=== PATIENT | female | born 1950 | race Caucasian/White ===

== ENCOUNTER → 2017-06-16 | Outpatient (REF) | payer MEDICARE ==
[~2017-06-16] MED LIST: CALC1TAB32 PO; CALC500T42 PO; FISH OIL 1,2001 CAP PO; IBAN150T6 PO; IBU600 PO; IBUP200C74 PO; LEVO25TA61 PO; MULT1CAP41 PO; NAPR-731 PO; OLME1TAB54 PO; OLME20TA PO
== END ==
LOC: ZZSENDIN 09:35
PROVIDERS: ATTEND Physician Assistant
DX: R31.9 Hematuria, unspecified (principal)
CPT/HCPCS: 81001

== ENCOUNTER 2017-06-24 00:04 | Day surgery (SDC) | payer MEDICARE ==
--- NOTE | 2017-06-23 18:14 | HISTORY AND PHYSICAL ---
DATE OF ADMISSION: June 24, 2017 CHIEF COMPLAINT Microscopic hematuria. HISTORY OF PRESENT ILLNESS Patient is a 66-year-old white female who was referred to the Urology Clinic for evaluation of microscopic hematuria by Nicki Choudhary. Urinalysis in the office revealed 8 red blood cells per high power field without evidence of infection. She had had a prior urinalysis which showed 4 red blood cells per high power field. A CT scan performed with IV contrast was performed in December of this past year. There were no delayed images performed, however, there were no obvious kidney stones, renal masses or other anomalies. She does have a remote smoking history. Options were given to the patient to have a CT urogram to evaluate her upper tracts and have an office cystoscopy versus anesthetic cystoscopy with bilateral retrograde pyelograms. She has elected to undergo the latter. PAST MEDICAL HISTORY * Hypertension. * Hypothyroidism. * Hypercholesterolemia. * Osteoporosis. * Hepatitis. PAST SURGICAL HISTORY * Colonoscopy. * Tubal ligation. ALLERGIES SULFA. CURRENT MEDICATIONS * Benicar. * Hydrochlorothiazide. * Levothyroxine. * Multivitamins. * Calcium. * Naprosyn. SOCIAL HISTORY Patient lives in [place], [place]. She has a remote smoking history. FAMILY HISTORY Noncontributory. REVIEW OF SYSTEMS Patient denies kidney stones, gross hematuria, bleeding disorder, liver disease , chronic headaches, productive cough, shortness of breath or chest pain. PHYSICAL EXAMINATION GENERAL: Patient is a well-developed, well-nourished white female in no acute distress. HEENT: Exam is normocephalic, atraumatic. CHEST: Clear to auscultation bilaterally. CARDIOVASCULAR: Exam is regular rate and rhythm. ABDOMEN: Exam is soft, nontender. No masses are palpated. GENITOURINARY: Exam is deferred to the OR. EXTREMITIES: Exam is without clubbing, cyanosis or edema. NEUROLOGIC: Exam is nonfocal. IMPRESSION A 66-year-old white female with a history of microscopic hematuria. PLAN We will perform anesthetic cystoscopy, bilateral retrograde pyelograms, and ureteroscopy as indicated. JUDIE
[~2017-06-24] VITALS: Ht 160 cm; Wt 49.4 kg
[2017-06-24] VITALS (11 sets, daily range): BP systolic 141–173; BP diastolic 81–106
[~2017-06-24 00:04] MED LIST changes: +CHOL10005 PO; +HYDR-2966 PO; +OLM20 PO; -OLME20TA PO; +PRAV20TA65 PO
[2017-06-24 10:34] LABS: PLATELET COUNT, AUTOMATED 386 K/uL (150-450)
[2017-06-24] MEDS: FAMOTIDINE 20 MG TAB PO ONE ×2 (10:37→10:50)
[2017-06-24] MEDS ORDERED: IOPAMIDOL-200 50 ML VIAL IS ONE (10:44)
[2017-06-24] MEDS ORDERED: FAMOTIDINE(*) 20MG/50ML PREMIX 50 ML IVPB ONE (10:45)
[2017-06-24] MEDS ORDERED: NORMOSOL R SOLN(*) 1000 ML BAG 1,000 ML IV PRN (10:50)
[2017-06-24] MEDS ORDERED: ceFAZolin(*) 1 GM VIAL 1 GM in NS(*) 0.9% 100 ML ADDVANT BAG 100 ML IV ONE (10:50)
[2017-06-24] MEDS ORDERED: MIDAZOLAM 2 MG/2 ML VIAL IVP PRN (10:50)
[2017-06-24] MEDS ORDERED: LIDOCAINE/SOD BICARB 8.4% SYR ID ONE (10:50)
[2017-06-24 11:00] LABS: INR 0.93
--- NOTE | 2017-06-24 11:04 | EKG ---
FACILITY: [facility] [place] PATIENT NAME: JUSTIN GARCIA : [id number] MR: [id number] V: [id number] EXAM DATE: ORDERING PHYSICIAN: PETER GARCIA TECHNOLOGIST: LILY Garcia Reason : PREOP Blood Pressure : / mmHG Vent. Rate : 076 BPM Atrial Rate : 076 BPM P-R Int : 154 ms QRS Dur : 078 ms QT Int : 368 ms P-R-T Axes : 078 062 068 degrees QTc Int : 414 ms Sinus rhythm Possible left atrial enlargement Nonspecific ST findings inferolateral leads No previous ECGs available Confirmed by HOLLY ERNST ([id number]) on 06/25/2017 6:00:51 AM Referred By: MARNIE Confirmed By:HOLLY ERNST
[2017-06-24] MEDS ORDERED: LIDOCAINE MPF 1% 5 ML VIAL ONE (11:22)
[2017-06-24] MEDS ORDERED: PROPOFOL EMUL(*) 10MG/ML 20 ML 40 ML ONE (11:22)
[2017-06-24] MEDS ORDERED: DEXAMETHASONE SOD PHOS 10MG/ML ONE (11:22)
[2017-06-24] MEDS ORDERED: ONDANSETRON 4 MG/2 ML VIAL ONE (11:22)
[2017-06-24] MEDS ORDERED: KETOROLAC 30 MG/ML VIAL ONE (11:22)
[2017-06-24] MEDS ORDERED: BELLADONNA ALK/OPIUM 60MG SUPP PR ONE (11:48)
[2017-06-24] MEDS ORDERED: HYDR-4309 PO (12:18)
[2017-06-24] MEDS ORDERED: DOCU-416 PO (12:18)
[2017-06-24] MEDS ORDERED: PHEN200T32 PO (12:19)
--- NOTE | 2017-06-24 12:20 | RADIOLOGY IMAGING REPORT ---
FACILITY: [facility] PATIENT NAME: Gricelda Andersen : 1950 MR: [id number] V: [id number] EXAM DATE: ORDERING PHYSICIAN: PHILLIP DYE TECHNOLOGIST: Location: [facility] Patient: Gricelda Andersen : 1950 Visit/Account:[id number] Date of Sevice: 06/24/2017 Technique: RETROGRADE PYELOGRAM HISTORY: HEMATURIA Comparison studies: None FINDINGS: Multiple operative fluoroscopic images were obtained for retrograde. There is opacificatio n of the right and left collecting systems, pelves and ureters. Fluoroscopy time: 0.36 minutes Air Kerma: 9.03 mGy IMPRESSION: 1. Intraoperative fluoroscopic radiographs as described above. Please see operative report for furt her details. Report Dictated By: González Vasquez DO at 06/24/2017 12:12 PM Report E-Signed By: González Vasquez DO at 06/24/2017 12:16 PM WSN:[id number]
--- NOTE | 2017-06-24 17:42 | OPERATIVE REPORT 1 ---
EVENT DATE: June 24, 2017 SURGEON: Shailesh Mathews MD ANESTHESIOLOGIST: Elie Cardoza MD ANESTHESIA: General anesthetic. PREOPERATIVE DIAGNOSIS Microscopic hematuria. POSTOPERATIVE DIAGNOSIS Microscopic hematuria. PROCEDURES PERFORMED 1. Anesthetic cystoscopy with examination under anesthesia. 2. Bilateral retrograde pyelograms. ESTIMATED BLOOD LOSS Minimal. INTRAVENOUS FLUIDS Crystalloid. DRAINS None. COMPLICATIONS None. CONDITION The patient was taken to the recovery room awake and in stable condition. STATEMENT OF MEDICAL NECESSITY The patient is a 67-year-old white female who was noted to have microscopic hematuria. She is now being brought to the operating room for planned anesthetic cystoscopy with bilateral retrograde pyelograms and ureteroscopy as indicated. She has had a prior CT scan in December of this past year with IV contrast, but no delayed images were obtained. Renal parenchyma appeared normal without any evidence of hydronephrosis or extrinsic mass effect. DESCRIPTION OF PROCEDURE PERFORMED The patient was brought to the operating room after general anesthetic was obtained. She was placed in the dorsal lithotomy position and prepped and draped in the usual sterile manner. Anesthetic cystoscopy was performed with the 21-Monegasque rigid Connell sheath and both the 30- and 70-degree lenses. She had a normal-appearing urethra. She had some very small bladder neck inflammatory polyps on the anterior surface at the bladder neck. Her bladder mucosa was smooth in appearance with no trabeculation or lesion. She had slit-like ureteral orifices, both effluxing clear urine. Her bladder capacity was greater than 600 mL under anesthesia. At this point, bilateral retrograde pyelograms were performed using an 8-Monegasque cone tip catheter, injecting 7 mL of contrast material in a retrograde manner. By my intraoperative interpretation, these films appeared normal. There was no evidence of persistent filling defect along the course of the ureters or into the calyceal systems. There was no evidence of hydronephrosis or other anomalies by my intraoperative interpretation. She had good drainage bilaterally. Following this, the patient's bladder was drained through the cystoscopic sheath. Bimanual pelvic exam was performed which revealed a normal external female. She had a grade 1 to 2 cystocele with no vaginal lesions or masses. Digital rectal exam was normal with a grade 2 rectocele. A B and O suppository was given per rectum at the conclusion of the case. She was awakened in the operating room and taken to the recovery area in stable condition. PLAN The plan will be to allow the patient to be discharged home today on Sultana, Colace, and Pyridium. We will plan to see her in the Urology Clinic in approximately two months to check another urinalysis. JUDIE
== END 2017-06-24 12:25 | disposition home or self-care (01) ==
LOC: OR 00:04
PROVIDERS: ATTEND Urology
DX: R31.9 Hematuria, unspecified (principal); I10 Essential (primary) hypertension
CPT/HCPCS: 36415; 52005; 74420; 85025; 85610; 85730; 93005; A9270; C1758; J0690; J1100; J1885; J2001; J2405; J2704; J3490; J7050; Q9966; 82040; 82247; 82310; 82374; 82435; 82565; 82947; 84075; 84132; 84155; 84295; 84450; 84460; 84520

== ENCOUNTER → 2017-12-08 | Outpatient (CLI) | payer MEDICARE ==
[~2017-12-08] MED LIST changes: +DENOSUMAB 60 MG/1 ML SYR SUBQ ONE; +DOCU-416 PO; +HYDR-4309 PO; +PHEN200T32 PO
[2017-12-08 09:57] VITALS: BP 125/90
== END ==
LOC: SPU 07:48
PROVIDERS: ATTEND Physician Assistant
DX: M81.8 Other osteoporosis without current pathological fracture (principal)
CPT/HCPCS: 96372; J0897